=== PATIENT | female | born 1980 | race Two or more races ===

== ENCOUNTER 2023-09-22 08:55 | Outpatient (OUT) | payer OTHER, SELFPAY ==
[2023-09-22 10:58] LABS: HCG Quantitative 2 mIU/mL
== END 2023-09-22 08:56 | disposition home or self-care (01) ==
PROVIDERS: PCP Family Medicine; Visit Provider Obstetrics & Gynecology
DX: N92.6 Irregular menstruation, unspecified (principal)
CPT/HCPCS: 36415; 84702